=== PATIENT | female | born 1960 | race Caucasian/White ===

== ENCOUNTER → 2021-04-04 | Emergency (ER) | payer OTHER ==
[~2021-04-04] VITALS: Ht 152.4 cm; Wt 45.4 kg
[~2021-04-04] MED LIST: HYZAAR 100-121 UDTAB PO; HYZAAR 50/12.51 TAB PO; TOPROL XL100 MG PO
== END | disposition home or self-care (01) ==
LOC: ER 08:41
DX: S00.12XA Contusion of left eyelid and periocular area, initial encounter (principal); S00.83XA Contusion of other part of head, initial encounter; M54.2 Cervicalgia; F02.80 Dementia in other diseases classified elsewhere, unspecified severity, without behavioral disturbance, psychotic disturbance, mood disturbance, and anxiety; W06.XXXA Fall from bed, initial encounter; Y93.89 Activity, other specified; Y92.013 Bedroom of single-family (private) house as the place of occurrence of the external cause; Y99.8 Other external cause status